=== PATIENT | male | born 1945 | race Caucasian/White ===

== ENCOUNTER → 2016-11-17 | Outpatient (CLI) | payer BC ==
[~2016-11-17] MED LIST: ASPEC81 PO; ATOR-24 PO; CHOL100010 PO; CHOL100027 PO; DUTA0.5C PO; FISHOIL PO; HYDR25TA4 PO; LUTE15CA PO; METO25TA3 PO; MISCCAP80 PO; MULTTAB58 PO; NXM/40 PO; OPTIRAY 320 IV PRN; SILD50TA PO; SILO8CAP PO
--- NOTE | 2016-11-17 16:07 | DIAGNOSTIC IMAGING REPORT ---
CT OF THE ABDOMEN WITH IV AND ORAL CONTRAST CT DOSE: 223.89 mGy.cm CLINICAL HISTORY: Abdominal pain. TECHNIQUE: Axial images of the abdomen were obtained following intravenous injection of 119 cc Optiray 320 IV. Oral contrast was administered. COMPARISON STUDY: CT of the abdomen October 12, 2013 and renal ultrasound March 10, 2016. FINDINGS: Several hepatic cysts are noted. There are several renal cysts as well. The spleen, adrenal glands and pancreas are normal. The caliber and wall thickness of visualized small and large bowel are normal. There is no upper abdominal adenopathy or ascites. There is no pneumatosis, free air or portal venous gas. Note is made of an abdominal aortic aneurysm status post placement of an endovascular stent graft. This is partially imaged on this exam. The aneurysm sac is mildly increased in size since exam of July 12, 2013, measuring 6.2 cm. It previously measured 5.4 cm. 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 In addition, there is contrast surrounding the graft which represents an additional endoleak. IMPRESSION: 1. No acute process within the abdomen. 2. Status post endovascular repair of abdominal aortic aneurysm. Mild increase in size of aneurysm sac since exam of October 12, 2013. Two endoleaks, as detailed above. Short-term imaging follow-up is recommended to reevaluate aneurysm sac size and endoleaks. Electronically signed by: Seth Morales M.D. 11/17/2016 4:05 PM
== END | disposition home or self-care (01) ==
LOC: C.CTS 13:41
PROVIDERS: ATTEND Internal Medicine
DX: R10.9 Unspecified abdominal pain (principal); I71.4 Abdominal aortic aneurysm, without rupture; T82.898A Other specified complication of vascular prosthetic devices, implants and grafts, initial encounter

== ENCOUNTER → 2016-11-23 | Outpatient (CLI) | payer BC ==
[~2016-11-23] MED LIST changes: -OPTIRAY 320 IV PRN
--- NOTE | 2016-11-23 09:07 | DIAGNOSTIC IMAGING REPORT ---
NUCLEAR HEPATOBILIARY SCAN CLINICAL HISTORY: Right upper quadrant abdominal pain. COMPARISON STUDY: Abdominal CT dated 11/17/2016. TECHNIQUE: Dynamic images of the liver and anterior abdomen were obtained every 5 minutes for a total of 60 minutes following the IV administration of 5.5mCi of technetium 99m Choletec. FINDINGS: The hepatobiliary scan shows prompt and homogeneous hepatic uptake. There is visualized activity within the intra and extrahepatic biliary tree at 10 minutes, and within the gallbladder at 20 minutes. There is normal biliary to bowel transit, with small bowel visualized by 15 minutes. IMPRESSION: Unremarkable nuclear hepatobiliary scan. There is no scintigraphic evidence of cholecystitis. Electronically signed by: Jessee Higgins M.D. 11/23/2016 9:05 AM Dictated Date/Time: 11/23/2016 9:04 AM
== END | disposition home or self-care (01) ==
LOC: C.NUCL 07:26
PROVIDERS: ATTEND Internal Medicine
DX: R10.11 Right upper quadrant pain (principal)

== ENCOUNTER → 2016-11-24 | Day surgery (SDC) | payer BC ==
[2016-11-23 13:37] VITALS: Ht 177.8 cm; Wt 77.3 kg
[~2016-11-24] VITALS: Ht 177.8 cm; Wt 77.3 kg
[~2016-11-24] MED LIST changes: -CHOL100027 PO; -MULTTAB58 PO; -SILD50TA PO; -SILO8CAP PO; +SODIUM CHLORIDE 0.9% 500ML 500 ML IV ONE
[2016-11-24 11:03] VITALS: TEMP 36.6
--- NOTE | 2016-11-24 11:31 | Endo History and Physical ---
History & Physical Date of Service: Nov 24, 2016. Chief Complaint: ABDOMINAL PAIN Referring Physician: DR. RAY FAJARDO History of Present Illness 71 yo CM who presents for EGD secondary to abdominal pain. Past Medical History Male Genitourinary Prob., High Cholesterol, Heart Disease Past Surgical History Hx Cardiac Surgery: Yes (HEART CATH-NO STENTS) Hx Internal Defibrillator: No Hx Pacemaker: No Hx Abdominal Surgery: Yes (AAA REPAIR, RT/LEFT INGUINAL HERNIA, RT REPAIR INGUINAL HERNIA) Hx of Implantable Prosthesis: No Hx Post-Op Nausea and Vomiting: Yes Hx Cancer Surgery: No Hx Thoracic Surgery: No Hx Orthopedic: No Hx Urinary Tract Surgery: Yes (KIDNEY STONE REMOVAL) Family History None Social History Smoking Status: Former Smoker Hx Substance Use: No Hx Alcohol Use: Yes (RARELY) Allergies Coded Allergies: No Known Allergies (Verified , 11/24/16) Current Medications Reported Home Medications Medications Dose Route/Sig Max Daily Dose Days Date Category Lutein (Lutein-Zeaxanthin) 1 Cap Cap 1 Cap PO QAM 11/23/16 Reported Vitamin D (Cholecalciferol) 1,000 Unit Tab 1 Tab PO Q2D 11/23/16 Reported Nexium (Esomeprazole Magnesium) 40 Mg Capcr 40 Mg PO QAM 11/23/16 Reported Probiotic (Probiotic Product) 1 Cap Cap 1 Cap PO QAM 06/21/14 Reported Avodart (Dutasteride) 0.5 Mg Cap 0.5 Mg PO QAM 06/21/14 Reported Toprol-Xl (Metoprolol Succinate) 25 Mg Tabcr 0.5 Tab PO HS 06/21/14 Reported Hctz (Hydrochlorothiazide) 25 Mg Tab 25 Mg PO QAM 10/12/13 Reported Lipitor (Atorvastatin Calcium) 40 Mg Tab 40 Mg PO QAM 10/12/13 Reported [place]-3 (Fish Oil) Oil 1 Cap PO QAM 10/03/12 Reported Ecotrin Or Generic * (Aspirin) 81 Mg Ectab 81 Mg PO Q2D 05/18/07 Reported Vital Signs Weight (Kilograms): 77.27 Height (Feet): 5 Height (Inches): 10 Date Time Temp Pulse Resp B/P Pulse Ox O2 Delivery O2 Flow Rate FiO2 11/24/16 11:03 36.6 59 18 158/90 98 Room Air 0 Physical Exam General Appearance: WD/WN, no apparent distress Respiratory/Chest: Auscultation: breath sounds normal Cardiovascular: Heart Auscultation: RRR Abdomen: Bowel Sounds: normal Inspection & Palpation: soft, non-distended, no tenderness, guarding & rebound Assessment and Plan Assessment: 71 yo CM who presents for EGD secondary to abdominal pain. Plan: Proceed with EGD
--- NOTE | 2016-11-24 11:47 | Discharge Instructions ---
Endoscopy Patient Instructions Date / Procedure(s) Performed Nov 24, 2016. EGD Allergy Information Coded Allergies: No Known Allergies (Verified , 11/24/16) Discharge Date / Findings Nov 24, 2016. Gastritis s/p biopsies Hiatal hernia Medication Instructions Stopped Medication(s): ASPIRIN LAST TAKEN 11/10/16 OK to resume all medications today as prescribed Reported Home Medications Medications Dose Route/Sig Max Daily Dose Days Date Category Lutein (Lutein-Zeaxanthin) 1 Cap Cap 1 Cap PO QAM 11/23/16 Reported Vitamin D (Cholecalciferol) 1,000 Unit Tab 1 Tab PO Q2D 11/23/16 Reported Nexium (Esomeprazole Magnesium) 40 Mg Capcr 40 Mg PO QAM 11/23/16 Reported Probiotic (Probiotic Product) 1 Cap Cap 1 Cap PO QAM 06/21/14 Reported Avodart (Dutasteride) 0.5 Mg Cap 0.5 Mg PO QAM 06/21/14 Reported Toprol-Xl (Metoprolol Succinate) 25 Mg Tabcr 0.5 Tab PO HS 06/21/14 Reported Hctz (Hydrochlorothiazide) 25 Mg Tab 25 Mg PO QAM 10/12/13 Reported Lipitor (Atorvastatin Calcium) 40 Mg Tab 40 Mg PO QAM 10/12/13 Reported [place]-3 (Fish Oil) Oil 1 Cap PO QAM 10/03/12 Reported Ecotrin Or Generic * (Aspirin) 81 Mg Ectab 81 Mg PO Q2D 05/18/07 Reported Provider Instructions Activity Restrictions - No exercising or heavy lifting for 24 hours. - Do not drink alcohol the day of the procedure. - Do not drive a car or operate machinery until the day after the procedure. - Do not make any important decisions or sign important papers in 24 hours after the procedure. Following Day: - Return to full activity which may include returning to work/school. Diet Start your diet with liquids and light foods (jello, soup, juice, toast). Then eat your usual diet if not nauseated. Treatment For Common After Affects For mild abdominal pain, bloating, or excessive gas: - Rest - Eat lightly - Lie on right side Follow-Up Information Follow-up with DR. RAY FAJARDO as scheduled Anesthesia Information What You Should Know You have had a procedure that required some medicine to reduce anxiety and discomfort. This treatment is called moderate sedation. After receiving the treatment, you may be sleepy, but you will be able to breathe on your own. The effects of the treatment may last for several hours. Follow these instructions along with Activity/Diet recommendations noted above: * Do NOT do anything where dizziness or clumsiness would be dangerous. * Rest quietly at home today, then you can be up and about tomorrow. * Have a responsible person stay with you the rest of today. * You may have had an I.V. today. If so, you may take the dressing off later today. Recommendations Call your doctor if: * Trouble breathing * Continuous vomiting for more than 24 hours * Temperature above 101 degrees * Severe abdominal pain or bloating * Pain not relieved by pain medicine ordered * There is increased drainage or redness from any incision * A large amount of rectal bleeding greater than 2-3 tablespoons. (If you had a polyp/s removed or have hemorrhoids, a small amount of blood - from the rectum is to be expected.) * You have any unanswered questions or concerns. IN THE EVENT OF A SERIOUS EMERGENCY, GO TO THE NEAREST EMERGENCY ROOM Your discharge instructions were prepared by provider Pasha Medellin. Patient Instructions Signature Page Zion Guerrero Patient (or Guardian) Signature/Date: I have read and understand the instructions given to me by my caregivers. Caregiver/RN/Doctor Signature/Date: The above-named patient and/or guardian has received patient instructions on this date. + Original Patient Signature Page (only) stays with chart. Please make copy for patient.
--- NOTE | 2016-11-24 11:53 | GI REPORT ---
Procedure Date: 11/24/2016 11:36 AM Procedure: Upper GI endoscopy Indications: Epigastric abdominal pain Medicines: Monitored Anesthesia Care Complications: No immediate complications. Estimated Blood Loss: Estimated blood loss: none. Procedure: Pre-Anesthesia Assessment: - Prior to the procedure, a History and Physical was performed, and patient medications and allergies were reviewed. The patient's tolerance of previous anesthesia was also reviewed. The risks and benefits of the procedure and the sedation options and risks were discussed with the patient. All questions were answered, and informed consent was obtained. Prior Anticoagulants: The patient has taken aspirin, last dose was 14 days prior to procedure. ASA Grade Assessment: III - A patient with severe systemic disease. After reviewing the risks and benefits, the patient was deemed in satisfactory condition to undergo the procedure. After obtaining informed consent, the endoscope was passed under direct vision. Throughout the procedure, the patient's blood pressure, pulse, and oxygen saturations were monitored continuously. The scope was introduced through the mouth, and advanced to the second part of duodenum. The upper GI endoscopy was accomplished without difficulty. The patient tolerated the procedure well. Findings: The examined esophagus was normal. A small hiatus hernia was present. Localized mild inflammation characterized by erythema was found in the gastric antrum. Biopsies were taken with a cold forceps for histology. The examined duodenum was normal. Impression: - Normal esophagus. - Small hiatus hernia. - Gastritis. Biopsied. - Normal examined duodenum. Recommendation: - Resume previous diet. - Continue present medications. - Await pathology results. - Return to GI office as previously scheduled. Pasha Medellin DO 11/24/2016 11:52:58 AM This report has been signed electronically. Note Initiated On: 11/24/2016 11:36 AM
[2016-11-24 12:24] VITALS: BP 123/76; PULSE 55; O2SAT 97
--- NOTE | 2016-11-24 12:35 | Anesthesiology Progress Note ---
Anesthesia Post Op Note Date & Time Nov 24, 2016 at 12:35 Vital Signs Pain Intensity: 0 Vital Signs Past 12 Hours Date Time Temp Pulse Resp B/P Pulse Ox O2 Delivery O2 Flow Rate FiO2 11/24/16 12:24 55 18 123/76 97 Room Air 11/24/16 12:09 53 18 130/74 95 Room Air 11/24/16 11:54 56 18 92/61 95 Room Air 11/24/16 11:03 36.6 59 18 158/90 98 Room Air 0 Notes Mental Status: alert / awake / arousable, participated in evaluation Pt Amnestic to Procedure: Yes Nausea / Vomiting: adequately controlled Pain: adequately controlled Airway Patency, RR, SpO2: stable & adequate BP & HR: stable & adequate Hydration State: stable & adequate Anesthetic Complications: no major complications apparent
== END | disposition home or self-care (01) ==
LOC: C.GI 10:43
PROVIDERS: ATTEND Internal Medicine
DX: R10.13 Epigastric pain (principal); K44.9 Diaphragmatic hernia without obstruction or gangrene; I10 Essential (primary) hypertension; E78.00 Pure hypercholesterolemia, unspecified; Z98.890 Other specified postprocedural states; Z87.891 Personal history of nicotine dependence; Z68.24 Body mass index [BMI] 24.0-24.9, adult

== ENCOUNTER → 2016-12-06 | Outpatient (CLI) | payer BC ==
[~2016-12-06] MED LIST changes: -SODIUM CHLORIDE 0.9% 500ML 500 ML IV ONE
[2016-12-06 13:40] LABS: BLOOD UREA NITROGEN 19 mg/dl (7-18); CREATININE 0.97 mg/dl (0.60-1.40)
== END | disposition home or self-care (01) ==
LOC: C.LABPBG 08:58
PROVIDERS: ATTEND Surgery Vascular Surgery
DX: I71.4 Abdominal aortic aneurysm, without rupture (principal)

== ENCOUNTER → 2017-03-22 | Outpatient (CLI) | payer BC ==
[~2017-03-22] MED LIST changes: +OPTIRAY 320 IV PRN
--- NOTE | 2017-03-22 08:04 | DIAGNOSTIC IMAGING REPORT ---
ABDOMEN AND PELVIS CTA WITH IV CONTRAST CT DOSE: 430.96 mGy.cm HISTORY: Right lower quadrant abdominal pain. AAA TECHNIQUE: Multiaxial CT images of the abdomen and pelvis were performed following the use of intravenous contrast to evaluate the abdominal aorta. Maximal intensity projection images were also obtained.. COMPARISON STUDY: Abdomen CT 11/17/2016. FINDINGS: The celiac artery, superior mesenteric artery and renal arteries are widely patent. The majority inferior mesenteric artery is occluded likely on a postoperative basis. However, there is reconstitution of flow of the inferior mesenteric artery due to collaterals. The patient is status post open repair of an abdominal aortic aneurysm. Aneurysm sac is decreased in size. There is residual aneurysmal dilatation near the aortic bifurcation extending into the common iliac arteries which measures up to 2.2 cm in AP diameter. The total transverse diameter at this location measures 4.6 cm on image 249. Bilateral iliac arteries are patent. There is no extravasation of contrast on this single phase arterial study to suggest an endoleak at this time. There is a 3.6 cm low density fluid collection anterior to the crossing left renal vein. There is a similar-appearing smaller low density fluid collection adjacent to the left common iliac artery measuring 1.9 cm. These favor postoperative seroma/old hematomas. The spleen, pancreas, and adrenal glands are unremarkable. A few hepatic and renal hypodense lesions are again noted. These likely represent cysts. No hydronephrosis. Normal gallbladder. No retroperitoneal lymphadenopathy. Prior midline incision. No significant pelvic free fluid. Normal bladder. No evidence for bowel obstruction. Normal appendix. Stable 1.5 cm low-density left presacral lesion. The long-term stability favors a benign process. Question mild focal thickening and pericolonic fat stranding at the proximal sigmoid colon. Moderate stool within the colon. IMPRESSION: 1. Questionable mild focal thickening and subtle pericolonic fat stranding at the proximal sigmoid colon. Clinical correlation recommended to assess for left lower quadrant pain and to exclude a developing acute diverticulitis. However, this could be due to underdistention. 2. Status post open repair of an abdominal aortic aneurysm. The residual aneurysm sac at the aortic bifurcation measures 4.6 x 2.2 cm. This has decreased in size. 3. There are 2 low-density fluid collections adjacent to the abdominal aorta and left common iliac artery which favor postoperative seromas/old hematomas as described above. An abscess is considered less likely. 4. Additional findings as described above. Electronically signed by: Sergey Galan M.D. 03/22/2017 8:03 AM Dictated Date/Time: 03/22/2017 7:43 AM
== END | disposition home or self-care (01) ==
LOC: C.CTS 06:57
PROVIDERS: ATTEND Surgery Vascular Surgery
DX: I71.4 Abdominal aortic aneurysm, without rupture (principal); R93.5 Abnormal findings on diagnostic imaging of other abdominal regions, including retroperitoneum; K76.9 Liver disease, unspecified; N28.9 Disorder of kidney and ureter, unspecified

== ENCOUNTER → 2017-04-15 | Outpatient (CLI) | payer BC ==
[~2017-04-15] MED LIST changes: -OPTIRAY 320 IV PRN
[2017-04-15 12:29] LABS: BASO % 0.3 %; BASO ABS # 0.02 K/uL (0-0.2); COMPLETE YES; EOS % 3.4 %; HEMATOCRIT 42.7 % (42-52); IG% 0.2 %; LYMPH % 22.4 %; LYMPH ABS # 1.44 K/uL (1.2-3.4); MEAN CELL VOLUME 93.4 fL (80-100); MEAN CORPUSCULAR HEMOGLOBIN 31.7 pg (25-34); MEAN PLATELET VOLUME 10.1 fL (7.4-10.4); MONO % 14.4 %; NEUT % 59.3 %; PLATELET COUNT 197 K/uL (130-400); RED BLOOD COUNT 4.57 M/uL (4.7-6.1); WHITE BLOOD COUNT 6.44 K/uL (4.8-10.8)
[2017-04-15 13:00] LABS: URINE APPEARANCE CLEAR (CLEAR); URINE BILIRUBIN NEG (NEG); URINE COLOR YELLOW; URINE EPITHELIAL CELL AUTO 0-5 /lpf (0-5); URINE NITRITE NEG (NEG); URINE SPECIFIC GRAVITY 1.025 (1.000-1.030); UROBILINOGEN NEG (NEG)
[2017-04-15 13:04] LABS: MANUAL MICROSCOPIC REQUIRED? NO; REVIEW REQ? NO
[2017-04-15 13:08] LABS: ALT/SGPT 35 U/L (12-78); AST/SGOT 22 U/L (15-37); BLOOD UREA NITROGEN 26 mg/dl (7-18); BUN/CREATININE RATIO 28.2 (10-20); CALCIUM 8.8 mg/dl (8.5-10.1); CARBON DIOXIDE 31 mmol/L (21-32); CHLORIDE 106 mmol/L (98-107); CREATININE 0.92 mg/dl (0.60-1.40); GLUCOSE 81 mg/dl (70-99); POTASSIUM 3.8 mmol/L (3.5-5.1); SODIUM 143 mmol/L (136-145)
[2017-04-15 13:11] LABS: CHOLESTEROL 154 mg/dl (0-200); CHOLESTEROL/HDL RATIO 2.6; HDL CHOLESTEROL 59 mg/dl; LDL CHOLESTEROL CALCULATED 79 mg/dl; TRIGLYCERIDES 81 mg/dl (0-150); VERY LOW DENSITY LIPOPROT CALC 16 mg/dl
[2017-04-15 13:26] LABS: ESTIMATED AVERAGE GLUCOSE 85 mg/dl; HA1C FLAG Normal (Normal)
--- NOTE | 2017-04-21 12:22 | CODING QUERY MEDICAL NECESSITY ---
SUPPORTING DIAGNOSIS NEEDED A supporting diagnosis is required for the test/procedure performed on this patient in order for us to be reimbursed by the patient's insurance. Please provide a supporting diagnosis for the following test/procedure listed below next to the test name along with your signature. *If there is no additional diagnosis for this patient that would support the following test/procedure please document that below next to the test/procedure. Test(s)/Procedure(s) that require a supporting diagnosis: * HEMOGLOBIN A1C DIAGNOSIS: Provider Signature: Date: Thank you Jeanne Chirinos [employer] Once completed, please kindly fax back to [phone] For questions please call [phone]
== END | disposition home or self-care (01) ==
LOC: C.LABPBG 09:06
PROVIDERS: ATTEND Internal Medicine
DX: E78.00 Pure hypercholesterolemia, unspecified (principal); E74.39 Other disorders of intestinal carbohydrate absorption

== ENCOUNTER → 2017-07-12 | Outpatient (CLI) | payer BC ==
--- NOTE | 2017-07-20 12:36 | CODING QUERY MEDICAL NECESSITY ---
CQSUPPORTING DIAGNOSIS NEEDED A supporting diagnosis is required for the test/procedure performed on this patient in order for us to be reimbursed by the patient's insurance. Please provide a supporting diagnosis for the following test/procedure listed below next to the test name along with your signature. *If there is no additional diagnosis for this patient that would support the following test/procedure please document that below next to the test/procedure. Test(s)/Procedure(s) that require a supporting diagnosis: DOS 07/12/17 PROSTATE SPECIFIC TEST (PSA) Provider Signature: Date: Thank you Kasia Pereira Health Information Management Once completed, please kindly fax back to [phone] For questions please call [phone]
== END | disposition home or self-care (01) ==
LOC: C.LABPBG 10:03
PROVIDERS: ATTEND Urology
DX: N52.9 Male erectile dysfunction, unspecified (principal); N40.1 Benign prostatic hyperplasia with lower urinary tract symptoms

== ENCOUNTER → 2017-08-03 | Outpatient (CLI) | payer BC ==
[2017-08-03 17:16] LABS: THYROID STIMULATING HORMONE 0.955 uIu/ml (0.300-4.500)
[2017-08-03 18:30] LABS: LYME DISEASE AB IGG NEG (NEG); LYME DISEASE AB IGM NEG (NEG)
[2017-08-10 04:16] LABS: ACETYLCHOLINE RECEP MODULATING 4; ACETYLCHOLINE RECEPT BLOCKING <15 % inhibit (<15); RECEPTOR BINDING AB <0.30 nmol/L (<=0.30)
== END | disposition home or self-care (01) ==
LOC: C.LAB1850 15:53
PROVIDERS: ATTEND Psychiatry & Neurology Neurology
DX: G52.9 Cranial nerve disorder, unspecified (principal); H53.2 Diplopia

== ENCOUNTER → 2017-08-16 | Outpatient (CLI) | payer BC ==
[2017-08-16 13:51] LABS: BLOOD UREA NITROGEN 23 mg/dl (7-18)
== END | disposition home or self-care (01) ==
LOC: C.LABPBG 09:48
PROVIDERS: ATTEND Psychiatry & Neurology Neurology
DX: Z00.00 Encounter for general adult medical examination without abnormal findings (principal); H53.2 Diplopia; G52.9 Cranial nerve disorder, unspecified

== ENCOUNTER → 2017-08-18 | Outpatient (CLI) | payer BC ==
[~2017-08-18] MED LIST changes: +GADAVIST IV PRN
--- NOTE | 2017-08-18 12:55 | DIAGNOSTIC IMAGING REPORT ---
MRI OF THE BRAIN WITHOUT AND WITH IV CONTRAST CLINICAL HISTORY: CRANIAL NERVE DISORDER,DIPLOPIA. COMPARISON STUDY: MRI of the brain April 07, 2010. TECHNIQUE: Utilizing a 1.5 Ayla magnet and dedicated coil, multiplanar, multiecho imaging of the brain was performed pre and postcontrast administration. IV administration of 7.5 mL of Gadavist contrast was uneventful. FINDINGS: There are no areas of restricted diffusion. No acute intracranial hemorrhage, midline shift or mass effect is present. Ventricular system is stable. The basilar cisterns are patent. There are no extra-axial collections. Flow-voids for the major intracranial vessels are present. There is no intracranial mass or pathologic enhancement. Scattered white matter T2 hyperintense foci are similar to MRI of April 07, 2010. The appearance of the brain is similar to prior exam. Calvarial signal is normal. Orbits are unremarkable. There is no significant sinus disease. IMPRESSION: 1. No acute intracranial findings. 2. Mild small vessel disease. 3. No intracranial mass or pathologic enhancement. Electronically signed by: Seth Morales M.D. 08/18/2017 12:53 PM Dictated Date/Time: 08/18/2017 12:49 PM
--- NOTE | 2017-08-18 13:00 | DIAGNOSTIC IMAGING REPORT ---
MRA OF THE INTRACRANIAL CIRCULATION WITHOUT CONTRAST CLINICAL HISTORY: CRANIAL NERVE DISORDER,DIPLOPIA. COMPARISON STUDY: MRA of the intracranial circulation May 15, 2007. TECHNIQUE: Utilizing a 1.5 Ayla magnet and 3-D [id number] technique, unenhanced MRA of the intracranial circulation was obtained. FINDINGS: The bilateral M1, M2, A1 and A2 segments are patent. No intracranial aneurysm is identified. There is persistence of the right posterior cerebral artery. The left vertebral artery is diminutive. This is unchanged. The right vertebral artery is dominant. Note is made of an anterior communicating artery and a left posterior communicating artery. No abrupt vessel cut off is identified. IMPRESSION: 1. No intracranial aneurysm identified. 2. persistence of the right posterior artery, an anatomic variant. Diminutive left vertebral artery which is unchanged since exam of May 15, 2007. Electronically signed by: Seth Morales M.D. 08/18/2017 12:59 PM Dictated Date/Time: 08/18/2017 12:55 PM
== END | disposition home or self-care (01) ==
LOC: C.MRI 10:58
PROVIDERS: ATTEND Psychiatry & Neurology Neurology
DX: G52.9 Cranial nerve disorder, unspecified (principal); H53.2 Diplopia

== ENCOUNTER → 2017-10-20 | Outpatient (CLI) | payer BC ==
[~2017-10-20] MED LIST changes: -GADAVIST IV PRN
[2017-10-20 12:28] LABS: BASO % 0.2 %; BASO ABS # 0.01 K/uL (0-0.2); COMPLETE YES; EOS % 1.5 %; IG% 0.2 %; LYMPH % 26.7 %; LYMPH ABS # 1.47 K/uL (1.2-3.4); MEAN CELL VOLUME 90.1 fL (80-100); MEAN CORPUSCULAR HGB CONC 33.3 g/dl (32-36); MEAN PLATELET VOLUME 9.6 fL (7.4-10.4); MONO % 12.3 %; NEUT % 59.1 %; PLATELET COUNT 183 K/uL (130-400); RED BLOOD COUNT 4.77 M/uL (4.7-6.1); WHITE BLOOD COUNT 5.51 K/uL (4.8-10.8)
[2017-10-20 13:05] LABS: ALT/SGPT 32 U/L (12-78); AST/SGOT 21 U/L (15-37); BLOOD UREA NITROGEN 17 mg/dl (7-18); BUN/CREATININE RATIO 16.9 (10-20); CARBON DIOXIDE 29 mmol/L (21-32); CHLORIDE 103 mmol/L (98-107); GLUCOSE 83 mg/dl (70-99); SODIUM 137 mmol/L (136-145); URIC ACID 5.1 mg/dl (2.6-7.2)
[2017-10-20 13:16] LABS: CHOLESTEROL 148 mg/dl (0-200); CHOLESTEROL/HDL RATIO 2.1; HDL CHOLESTEROL 69 mg/dl; LDL CHOLESTEROL CALCULATED 65 mg/dl; THYROID STIMULATING HORMONE 0.945 uIu/ml (0.300-4.500); TRIGLYCERIDES 70 mg/dl (0-150); VERY LOW DENSITY LIPOPROT CALC 14 mg/dl
== END | disposition home or self-care (01) ==
LOC: C.LABPBG 10:59
PROVIDERS: ATTEND Internal Medicine
DX: E78.00 Pure hypercholesterolemia, unspecified (principal)

== ENCOUNTER → 2017-11-11 | Outpatient (CLI) | payer BC | END | disposition home or self-care (01) | LOC: C.PATHSPEC 13:37 | PROVIDERS: ATTEND Dermatology | DX: L82.0 Inflamed seborrheic keratosis (principal) ==

== ENCOUNTER → 2018-06-06 | Outpatient (CLI) | payer BC ==
[2018-06-06 12:45] LABS: BASO % 0.1 %; BASO ABS # 0.01 K/uL (0-0.2); EOS % 1.5 %; EOS ABS # 0.11 K/uL (0-0.5); HEMOGLOBIN 14.7 g/dL (14.0-18.0); IG# 0.01 K/uL (0.00-0.02); LYMPH % 24.7 %; LYMPH ABS # 1.86 K/uL (1.2-3.4); MEAN CELL VOLUME 88.9 fL (80-100); MEAN CORPUSCULAR HEMOGLOBIN 29.7 pg (25-34); MEAN CORPUSCULAR HGB CONC 33.4 g/dl (32-36); MEAN PLATELET VOLUME 9.7 fL (7.4-10.4); MONO % 12.5 %; MONO ABS # 0.94 K/uL (0.11-0.59); NEUT % 61.1 %; NEUT ABS # 4.59 K/uL (1.4-6.5); PLATELET COUNT 194 K/uL (130-400); RED CELL DISTRIBUTION WIDTH CV 15.3 % (11.5-14.5); RED CELL DISTRIBUTION WIDTH SD 48.9 fL (36.4-46.3); WHITE BLOOD COUNT 7.52 K/uL (4.8-10.8)
[2018-06-06 13:02] LABS: ALT/SGPT 41 U/L (12-78); AST/SGOT 25 U/L (15-37); BLOOD UREA NITROGEN 22 mg/dl (7-18); CALCIUM 8.9 mg/dl (8.5-10.1); CARBON DIOXIDE 30 mmol/L (21-32); CHOLESTEROL 166 mg/dl (0-200); CREATININE 0.95 mg/dl (0.60-1.40); GLUCOSE 75 mg/dl (70-99); LDL CHOLESTEROL CALCULATED 84 mg/dl; SODIUM 137 mmol/L (136-145)
[2018-06-06 13:09] LABS: HEMOGLOBIN A1C 5.2 % (4.5-5.6)
== END | disposition home or self-care (01) ==
LOC: C.LABPBG 09:11
PROVIDERS: ATTEND Internal Medicine
DX: E78.00 Pure hypercholesterolemia, unspecified (principal)

== ENCOUNTER → 2018-06-20 | Outpatient (CLI) | payer BC | END | disposition home or self-care (01) | LOC: C.LAB1850 13:43 | PROVIDERS: ATTEND Urology | DX: N20.0 Calculus of kidney (principal) ==